=== PATIENT | male | born 1985 ===

== ENCOUNTER → 2017-07-04 | Outpatient (CLI) | payer OTHER ==
[~2017-07-04] MED LIST: ZYRTEC10 MG
== END | disposition home or self-care (01) ==
LOC: PPHC 13:09
DX: J31.0 Chronic rhinitis (principal)

== ENCOUNTER 2017-08-16 07:04 | Outpatient (CLI) | payer OTHER | END 2017-08-16 07:11 | disposition home or self-care (01) | LOC: LAB 07:04 | DX: R50.9 Fever, unspecified (principal) ==

== ENCOUNTER → 2018-12-08 11:07 | Outpatient (CLI) | payer OTHER | END | disposition home or self-care (01) | LOC: LAB 11:07 | DX: J11.1 Influenza due to unidentified influenza virus with other respiratory manifestations (principal); A49.3 Mycoplasma infection, unspecified site ==

== ENCOUNTER 2019-03-13 14:07 | Outpatient (CLI) | payer OTHER | END 2019-03-13 14:15 | disposition home or self-care (01) | LOC: RAD 14:07 | DX: M54.5 Low back pain (principal); M54.6 Pain in thoracic spine ==

== ENCOUNTER 2019-03-20 07:30 | Outpatient (CLI) | payer OTHER | END 2019-03-20 07:36 | disposition home or self-care (01) | LOC: LAB 07:30 | DX: Z00.8 Encounter for other general examination (principal) ==

== ENCOUNTER → 2020-03-31 | Outpatient (CLI) | payer OTHER | END | disposition home or self-care (01) | LOC: PPH VACUNA 09:00 | DX: Z23 Encounter for immunization (principal) ==

== ENCOUNTER 2021-04-13 16:55 | Outpatient (CLI) | payer OTHER | END 2021-04-13 16:59 | disposition home or self-care (01) | LOC: PPH VACUNA 16:55 | PROVIDERS: ATTEND Emergency Medicine Pediatric Emergency Medicine | DX: Z23 Encounter for immunization (principal) ==

== ENCOUNTER 2021-04-20 09:45 | Outpatient (CLI) | payer OTHER | END 2021-04-20 10:00 | disposition home or self-care (01) | LOC: PPH VACUNA 09:45 | PROVIDERS: ATTEND Emergency Medicine Pediatric Emergency Medicine | DX: Z23 Encounter for immunization (principal) ==

== ENCOUNTER 2022-03-07 08:00 | Outpatient (CLI) | payer OTHER | END 2022-03-07 08:05 | disposition home or self-care (01) | LOC: PPH VACUNA 08:00 | PROVIDERS: ATTEND Emergency Medicine Pediatric Emergency Medicine | DX: Z23 Encounter for immunization (principal) ==

== ENCOUNTER 2023-03-29 08:40 | Outpatient (CLI) | payer OTHER | END 2023-03-29 08:50 | disposition home or self-care (01) | LOC: PPH VACUNA 08:40 | PROVIDERS: ATTEND Emergency Medicine Pediatric Emergency Medicine | DX: Z23 Encounter for immunization (principal) | CPT/HCPCS: 90686; G0008 ==

== ENCOUNTER 2024-04-10 09:35 | Outpatient (CLI) | payer OTHER | END 2024-04-10 10:00 | disposition home or self-care (01) | LOC: PPH VACUNA 09:35 | PROVIDERS: ATTEND Emergency Medicine Pediatric Emergency Medicine | DX: Z23 Encounter for immunization (principal) ==

== ENCOUNTER 2024-07-21 13:30 | Outpatient (CLI) | payer OTHER ==
[2024-07-23 12:38] LABS: HEPATITIS A ANTIBODY IGG Positive (Negative); HEPATITIS B SURFACE ANTIBODY Reactive (.); HEPATITIS C VIRUS ANTIBODY Non Reactive (Non Reactive)
== END 2024-07-21 13:35 | disposition home or self-care (01) ==
LOC: LAB 13:30
DX: A64 Unspecified sexually transmitted disease (principal); B19.9 Unspecified viral hepatitis without hepatic coma

== ENCOUNTER 2025-04-21 08:48 | Outpatient (CLI) | payer OTHER ==
[2025-04-21 08:56] LABS: COVID-19 AG POSITIVE (NEGATIVE)
== END 2025-04-21 08:51 | disposition home or self-care (01) ==
LOC: LAB 08:48
PROVIDERS: ATTEND Preventive Medicine Occupational Medicine
DX: J11.1 Influenza due to unidentified influenza virus with other respiratory manifestations (principal); Z20.828 Contact with and (suspected) exposure to other viral communicable diseases

== ENCOUNTER 2025-05-04 14:00 | Outpatient (CLI) | payer OTHER | END 2025-05-04 14:10 | disposition home or self-care (01) | LOC: PPH VACUNA 14:00 | PROVIDERS: ATTEND Emergency Medicine Pediatric Emergency Medicine | DX: Z23 Encounter for immunization (principal) ==